=== PATIENT | female | born 1970 | race American Indian/Alaskan Native ===

== ENCOUNTER 2017-11-17 19:20 | Emergency (ER) | payer OTHER ==
[~2017-11-17] VITALS: Ht 160 cm; Wt 113.4 kg
[~2017-11-17 19:20] MED LIST: BACTRIM DS TAB1 EACH PO; KEFLEX500 MG PO; METFORMIN HCL500 MG PO; NORCO 5-325 TA1 EACH PO; ULTRAM50 MG PO; ZITHROMAX250 MG PO
[2017-11-18] MEDS ORDERED: LIDODERM1 EACH TOP (02:11)
[2017-11-18] MEDS ORDERED: CYCLOBENZAPRINE10 MG PO (02:11)
[2017-11-18] MEDS ORDERED: BACTRIM DS TAB1 EACH PO (02:11)
[2017-11-18] MEDS ORDERED: PREDNISONE10 MG PO (02:11)
[2017-11-18] MEDS ORDERED: NAPROSYN500 MG PO (02:11)
--- NOTE | 2017-11-19 22:40 | EKG ---
[facility] [address] [facility] [place] [address] Signed Normal sinus rhythm Left axis deviation Cannot rule out Anterior infarct , age undetermined Abnormal ECG No previous ECGs available Confirmed by YOHANA ZHU MD ([id number]) on 11/19/2017 10:40:01 PM Electronically Signed By: YOHANA ZHU MD 11/19/17 2240 PATIENT NAME: SAAD CALLOWAY Electrocardiogram DATE OF : 70 PHYSICIAN: YOHANA ZHU MD REPORT #: [id number] REPORT IS CONFIDENTIAL AND NOT TO BE RELEASED WITHOUT AUTHORIZATION
== END 2017-11-18 02:22 | disposition home or self-care (01) ==
LOC: ED 19:20
DX: N64.4 Mastodynia (principal); M79.622 Pain in left upper arm; E11.9 Type 2 diabetes mellitus without complications; E66.9 Obesity, unspecified; Z98.890 Other specified postprocedural states; Z79.84 Long term (current) use of oral hypoglycemic drugs
CPT/HCPCS: 93005; 93010; 99283; J7512

== ENCOUNTER 2020-03-23 03:53 | Emergency (ER) | payer OTHER ==
[~2020-03-23] VITALS: Ht 160 cm; Wt 113.4 kg
--- OUTSIDE RECORDS SUMMARY | ~2020-03-23 | XMS | Clinical Summary ---
Demographics + + + | Address | [address] | | | [place] [address] | + + + | Home Phone | | + + + | Preferred Language | Unknown | + + + | Marital Status | Unknown | + + + | Rastafarian Affiliation | Unknown | + + + | Race | Unknown | + + + | Ethnic Group | Unknown | + + + Author + + + | Author | [facility] (Historical as of | | | 07-01-19) | + + + | Organization | [facility] (Historical as of | | | 07-01-19) | + + + | Address | Unknown | + + + | Phone | Unavailable | + + + Support + + +---------+ + | Name | Relationship | Address | Phone | + + +---------+ + | Contact,No | ECON | Unknown | | + + +---------+ + Care Team Providers + +------+ + | Care Supervisor Customer Complaint Service Name | Role | Phone | + +------+ + PP | Unavailable | + +------+ + Allergies Not on File Current Medications Not on file Active Problems Not on file Social History + +-------+ +--------+------+ | Tobacco Use | Types | Packs/Day | Years | Date | | | | | Used | | + +-------+ +--------+------+ | Never Assessed | | | | | + +-------+ +--------+------+ + + + | Sex Assigned at | Date Recorded | | | | + + + | Not on file | | + + + Plan of Treatment + + + + + | Health Maintenance | Due Date | Last Done | Comments | + + + + + | Vaccine: | | | | | Dtap/Tdap/Td (1 - | 9 | | | | Tdap) | | | | + + + + + | Cervical Cancer | | | | | Screening (Pap) | 0 | | | + + + + + | Vaccine: Influenza | | | | | (Season Ended) | 0 | | | + + + + + Results Not on filefrom Last 3 Months Insurance + +--------+ +------+-------+ + | Payer | Benefi | Subscriber | Type | Phone | Address | | | t Plan | ID | | | | | | / | | | | | | | Group | | | | | + +--------+ +------+-------+ + | MEDICAID | MEDICA | [id number] | | | [address] | | | ID | | | | [place] | | | [place] | | | | [phone] | + +--------+ +------+-------+ + + +--------+ +--------+ + + | Guarantor Name | Accoun | Relation to | Date | Phone | Billing Address | | | t Type | Patient | of | | | | | | | | | | + +--------+ +--------+ + + | AMY DANIELS | Person | Self | [birth year] | Home: | [address] | | | al/Joseph | | 1970 | [phone] [address] [place], [place] | | | [place] | | | [phone] | + +--------+ +--------+ + +"
--- OUTSIDE RECORDS SUMMARY | ~2020-03-23 | XMS | Clinical Summary ---
Demographics + + + | Address | [address] | | | [place] [address] | + + + | Home Phone | | + + + | Preferred Language | Unknown | + + + | Marital Status | Unknown | + + + | Buddhist Affiliation | Unknown | + + + | Race | Unknown | + + + | Ethnic Group | Unknown | + + + Author + + + | Author | [facility] (Historical as of | | | 07-01-19) | + + + | Organization | [facility] (Historical as of | | | 07-01-19) [...] Team Providers + +------+ + | Care Special Skills Officer Name | Role | Phone | + [...] +------+-------+ + | MEDICAID | MEDICA | [id number] | | | [address] | | | ID | | | | [place] | | | [place] | | | | [phone] | + +--------+ +------+-------+ + + +--------+ [...] | [place] | | | [phone] | [phone] | + +--------+ +--------+ + +"
[~2020-03-23 03:53] MED LIST changes: +CYCLOBENZAPRINE10 MG PO; +LIDODERM1 EACH TOP; +NAPROSYN500 MG PO; +PREDNISONE10 MG PO
[2020-03-23] MEDS ORDERED: GABAPENTIN300 MG PO (04:14)
== END 2020-03-23 07:19 | disposition home or self-care (01) ==
LOC: ED 03:53
DX: S61.512A Laceration without foreign body of left wrist, initial encounter (principal); E11.9 Type 2 diabetes mellitus without complications; F17.200 Nicotine dependence, unspecified, uncomplicated; Z79.899 Other long term (current) drug therapy; X78.8XXA Intentional self-harm by other sharp object, initial encounter
CPT/HCPCS: 12002; 80053; 80176; 81001; 84443; 84703; 85025; 90471; 90715; 99283-25; G0480

== ENCOUNTER 2020-12-13 11:56 | Emergency (ER) | payer OTHER ==
[~2020-12-13] VITALS: Ht 160 cm; Wt 108.9 kg
[~2020-12-13 11:56] MED LIST changes: +GABAPENTIN300 MG PO
== END 2020-12-13 15:00 | disposition home or self-care (01) ==
LOC: ED 11:56
DX: E11.65 Type 2 diabetes mellitus with hyperglycemia (principal); E66.9 Obesity, unspecified; F17.200 Nicotine dependence, unspecified, uncomplicated; Z79.84 Long term (current) use of oral hypoglycemic drugs
CPT/HCPCS: 80053; 81001; 82010; 85025; 96374; 96375; 96376; 99284-25; J1815; J2405; J7030

== ENCOUNTER 2021-12-13 18:20 | Emergency (ER) | payer OTHER ==
[~2021-12-13] VITALS: Ht 160 cm; Wt 108.9 kg
[2021-12-13] MEDS ORDERED: CYCLOBENZAPRINE10 MG PO (23:04)
[2021-12-13] MEDS ORDERED: ONDANSETRON ODT8 MG PO (23:04)
== END 2021-12-13 23:48 | disposition home or self-care (01) ==
LOC: ED 18:20
DX: U07.1 COVID-19 (principal); E11.9 Type 2 diabetes mellitus without complications; E66.9 Obesity, unspecified; Z68.41 Body mass index [BMI] 40.0-44.9, adult
CPT/HCPCS: 74177; 80053; 81001; 83690; 85025; 96375; 99284-25; A9270; C9803; J1170; J2405; J7030; Q9967; U0003

== ENCOUNTER 2021-12-17 13:06 | Inpatient (IN) | payer OTHER ==
[~2021-12-17] VITALS: Ht 160 cm; Wt 98.1 kg
[~2021-12-17 13:06] MED LIST changes: +ONDANSETRON ODT8 MG PO
--- OUTSIDE RECORDS SUMMARY | 2021-12-17 13:10 | XMS ---
PreManage Notification: SAAD PORTILLO Security Supervisor Accounting Clerks Events No recent Security Events currently on file CRITERIA MET - [facility] - 2 Visits in 30 Days CARE PROVIDERS SILVA KENT Physician Field Laborer Current PHONE: [phone] [facility] has no Care Guidelines for this patient. [facility] VISIT COUNT (12 MO.) 2 [facility] TOTAL 2 NOTE: Visits indicate total known visits. ED/UCC VISIT TRACKING (12 MO.) 12/17/2021 13:07 [facility] [place] TYPE: Emergency COMPLAINT: - DIFFICULTY BREATHING, FLU SYMPTOMS 12/13/2021 18:21 [facility] [place] TYPE: Emergency COMPLAINT: - N/V. STOMACH PAIN DIAGNOSES: - COVID-19 - Obesity, unspecified - Type 2 diabetes mellitus without complications - Upper abdominal pain, unspecified - Body mass index [BMI]40.0-44.9, adult INPATIENT VISIT TRACKING (12 MO.) No inpatient visits to display in this time frame [email or web address]
[2021-12-17] MEDS ORDERED: DICLOFENAC POTA50 MG PO (15:35)
--- NOTE | 2021-12-17 18:45 | NUR ---
New admit to the medical floor. Patient arrived to unit, a&ox4. Patient arrived on 5L oxygen per nc, respirations non labored. Patient reports shortness of breath at rest. Patient voided 200ml concentrated urine in bedside commode upon admit. Patient reports an ongoing headache. Oriented pt to room and call light. No needs at this time.
--- NOTE | 2021-12-17 19:02 | NUR ---
Tylenol 500mg po admin for reports of 9/10 head pain.
--- NOTE | 2021-12-17 22:50 | NUR ---
PT ON 5LNC, SOB WITH EXERTION PRESENT, LUNGS DIM AT BASES, UP TO BSC, VOIDED QS. TOLERATING LIQUIDS WELL, NO EMESIS. SL PATENT RAC. MEDICATED WITH TYLENOL PER RIBS/H/A PAIN. MEDICATED WITH COUGH SYRUP AND TESSLON PERLES PER DRY MOUTH AND COUGH. PLEASANT, COOPERATIVE, TELE#4 DENIES CP.
--- NOTE | 2021-12-17 22:50 | NUR ---
PT ON 5LNC, SOB WITH EXERTION PRESENT, LUNGS DIM AT BASES, UP TO BSC, VOIDED QS. TOLERATING LIQUIDS WELL, NO EMESIS. SL PATENT RAC. MEDICATED WITH TYLENOL PER RIBS/H/A PAIN. MEDICATED WITH COUGH SYRUP AND TESSLON PERLES PER DRY MOUTH AND COUGH. PLEASANT, COOPERATIVE, TELE#[address] W CPOX AFIB W A RUN OF PVC'S DENIES CP.
--- NOTE | 2021-12-18 01:04 | NUR ---
Continues on Resp Isolation, 5L NC O2, no distress, eyes closed, turns self in bed, call light and fluids at bedside
--- NOTE | 2021-12-18 03:00 | NUR ---
Pt was up to BSC, voided dark yellow urine, cloudy, no abnormal smell. was on O2 5L NC, sats 89% at that time. O2 tubing in one nare, repositioned. Increaed anxiety and sob on return. O2 increaed to 6L, dessatted to 86%. increased to 8L high flow tubing. sats 89-90%, proning positioning on her abd. mouth breather, reassured, pamphlet given. dessated to 85% again, lungs with fine crackles t/o. resp up to 26. O2 increaed by RT to 13L high flow. sats per CPOX#4
--- NOTE | 2021-12-18 03:16 | NUR ---
Pt on 13L high flow O2, proning positioning. reassured
--- NOTE | 2021-12-18 04:31 | NUR ---
turning and desatted to 79%. on 13L high flow. reminded of proning positioning and turned to L side. O2 increaed to 15L, sats 88-89%. changed to 15L oxymask, with inmediate increaed to 93%.. medicated with tylenol per h/a and cough syrup. ice chips on requests. alert andoriented, anxious, reassured, calmer
--- NOTE | 2021-12-18 04:44 | NUR ---
Pt on 15L Oxymask and proning position Abd, sats 94%
--- NOTE | 2021-12-18 05:10 | NUR ---
Pt was initially on 5LNC regular O2 tubing. SOB with exertion when up to BSC, requiring incresing O2 to 6-7L.desatting to 76%, increaed anxiety, reassured O2 tubing changed to high flow to 8L. still dessated to low 80's. proning positioned with cuing. O2 increaed to 13L, sats 89%. O2 increased to 15L sats 91%.Pt lungs with fine crackles through out. Increased sob with anxiety, due to sore throat and moving in bed, desatted again and was changed to Oxymask 15L, proned to abd and left sided. sats per CPOX #4 93% pulse 51, resp 18. resting, eyes closed, no further distress. Has been medicated with Tylenol per h/a and with tessalon perlesX1 and cough syrup X@, ice chips per cough and to soothe sore throat. alert and oriented follows instructions. cont to reassure safety, O2 concerns, anxiety and proning positioning. Pt on Respiratory Isolation. Received first dose of Remdesevir
--- NOTE | 2021-12-18 05:57 | NUR ---
pt on 15L OXymask, turned and repositioned, cpox #4 sasts 90-93%. Cooperative, stated she has restless legs and would like meds for it. will notify
--- NOTE | 2021-12-18 07:00 | NUR ---
Pt laying on her R side, Oxymask at 15L in place, cpox#[address] 95%
--- NOTE | 2021-12-18 07:18 | NUR ---
REPORT RECEIVED FROM BETO GORDON. PT RESTING ON RIGHT SIDE WITH EYES CLOSED, RESPIRATIONS EVEN AND UNLABORED. OXGYEN IN PLACE BY OXYMASK AT 15L WITH OXYGEN SATURATIONS OF 94%. DR. ZHU UPDATED REGARDING D-DIMER LAB VALUES AND INCREASED OXYGEN NEED, NO NEW ORDERS AT THIS TIME. PT ALLOWED TO REST. BED RAILS UP CALL LIGHT WITHIN REACH.
[2021-12-18] MEDS ORDERED: CYCLOBENZAPRINE10 MG PO (07:50)
[2021-12-18] MEDS ORDERED: ONDANSETRON ODT8 MG PO (07:50)
--- NOTE | 2021-12-18 08:18 | NUR ---
MORNING ASSESSMENT AND MEDICATION DUE. PT RESTING IN BED, WORKING WITH RT. OXGYEN SATURATION DROPPING TO 87% ON 15L O2 BY OM. NC AT 15L ADDED UNDER OM. PT CLIMBS TO 89=90% WHILE RESTING WITH OM AT 15L AND NC AT 15L. STAND BY ASSIST UP TO BEDSIDE COMODE. PT VERY SHORT OF BREATH WITH ACTIVITY. PT VOIDS 300ML YELLOW CONCENTRATED URINE WITH OUT ISSUE. OXGYEN SATURATION DROP TO 82% WITH ACTIVTY WITH BOTH OM AND NC REMAINING IN PLACE. DEPENDS PROVIDED PER PT REQUEST PT REPORTS STRESS INCONTANCE WITH COUGHING. PT REPORTS NAUSEA, SEE MAR FOR MEDICATION GIVEN. IV ASSESSED, WNL, NO S/S OF PHLEBITIS NOTED, IV FLUSHED AND SALINE LOCKED PER PROTOCOL. PT CONTINUES TO REPORT GENERALIZED WEAKNESS. PT REPORTS 7/10 HEADACHE THAT IS "WORSE WHEN I GET UP." SEE MAR FOR MEDICATION GIVEN. CRACKELS NOTED THROUGOUT LUNGS. DYSPNEA ON EXERTION SEVERE. HEART TONES IRREGULAR. PT REPORTS POOR APPITITE. PT DENIES LOSS OF SENSE OF TASTE OR SMELL. DENIES DIARRHEA. PT EDUCATION DONE REGARDING PRONING. PT VERBALIZEDS UNDERSTANDING. STATES SHE WOULD LIKE TO REMIAN ON BACK FOR NOW TO "TRY AND EAT SOMETHING." PT DEMONSTRATES USE OF I.S. REACHING 250-500ML X5. MEDICATIONS GIVEN. NO ADDITIONAL REQUESTS OR COMPLAINTS. CALL LIGHT WITHIN REACH. BED RAILS UP.
--- NOTE | 2021-12-18 09:02 | NUR ---
RT UPDATED ON PTS STATUS AND OXGYEN NEEDS, AZRA, RT RECCOMENDING VAPOTHERM AND STATES HE WILL BRING ONE TO THE ROOM.
--- NOTE | 2021-12-18 09:33 | NUR ---
THIS RN TO ROOM TO CHECK ON PT. PT PLACED ON VAPOTHERM BY RT. SETTINGS OF 100% FIO2 AND 40LPM. OXYGEN SATURATIONS 93-95%. PT RESTING ON RIGHT SIDE. PT DENIES REQUESTS OR COMPLAINTS AT THIS TIME. STATES NAUSEA HAS IMPROVED. VAUGHN ADKINS AT BEDSIDE FOR VITAL SIGNS. CALL LIGHT WITHIN REACH.
--- NOTE | 2021-12-18 09:40 | NUR ---
In to speak with pt, she is proning. Asked if I should return at another time and she would prefer. Will follow up with pt tomorrow.
--- NOTE | 2021-12-18 10:09 | NUR ---
THIS RN TO ROOM TO CHECK ON PT. PT RESTING ON LEFT SIDE. OXYGEN SATURATIONS 93-95% ON 100% FIO2 AND 40LPM. PT REPORTS HER IV IS BOTHERING HER. IV ASSESSED, WNL, NO PAIN OR OTHER S/S PHLEBITIS NOTED. TAPE REMOVED AND PT REPORTS "THAT FEELS BETTER." DR. ZHU TO BEDSIDE TO REVIEW PLAN OF CARE WITH PT. DR. ZHU UPDATED ON PT STATUS. NO ADDITIONAL REQUESTS OR COMPLAINTS. CALL LIGHT WITHIN REACH. BED RAILS UP.
--- NOTE | 2021-12-18 10:42 | NUR ---
THIS RN TO ROOM TO CHECK ON PT. PT REMAINS IN PRONE POSITION WITH OXYGEN SATURATIONS OF 98% ON 100% FIO2 AND 40LPM. PT RESTING WITH EYES CLOSED. PT ALLOWED TO REST UNDESTURBED. CALL LIGHT WITHIN REACH. BED RAILS UP.
--- NOTE | 2021-12-18 11:19 | NUR ---
THIS RN TO ROOM TO CHECK ON PT. PT RESTING ON LEFT SIDE WITH EYES CLOSED. RESPRITIONS EVEN AND UNLABORED. OXGYEN SATRUATIONS AT 96% ON 100% FIO2 AND 40LPM THROUGH VAPOTHERM. PT ALLOWED TO REST. CALL LIGHT WITHIN REACH. BED RAILS UP.
--- NOTE | 2021-12-18 11:46 | NUR ---
PT AWAKE, MEDICATION DUE. THIS RN TO ROOM PT IN SEMI VENEGAS POSITION WITH HEAD OF BED ELEVATD TO 30 DEGREES. OXGYEN SATURATION 90-92% ON VAPOTHERM SETTINGS OF 100% FIO2 AND 40LPM. MEDICATION GIVEN. PT DENIES NASUEA, REPORTS MINIMAL APPITITE. PT REPORTS HEADACHE AT 4/10, DENIES NEED FOR MEDICATION AT THIS TIME. NO ADDITIONAL REQUESTS OR COMPLAINTS. CALL LIGHT WITHIN REACH.
--- NOTE | 2021-12-18 12:40 | NUR ---
PULSE OXYMETRY NOTED TO BE DROPING TO 83% WITH PT ON VAPOTHERM 100% FIO2 AND 40LPM SITTING IN SEMI VENEGAS POSITION. PT REPOSITIONED TO RIGHT SIDE LYING POSITION WITH OXGYEN SATURAITON CLIMBING TO 88%. OXYMASK PLACED OVER VAPOTHERM AT 15L. OXGYEN SATURATION CLIMBS TO 96%. PT REQUESTS TO LEAVE OXYMASK IN PLACE STATING "IT HELPS A LOT." PT REMAINS ON RIGHT SIDE. WAS ABLE TO EAT 25% OF LUNCH. NO ADDITIONAL REQUESTS OR COMPLAINTS. CALL LIGHT WITHIN REACH. BED RAILSUP.
--- NOTE | 2021-12-18 13:09 | NUR ---
DR ZHU UPDATED ON PT STATUS. STATES OK TO LEAVE PT WITH OXY MASK AND VAPOTHERM AT THIS AND IF OXYGEN NEED CONTINUES TO INCREASE TO ORDER CPAP. SHORER UPDATED.
--- NOTE | 2021-12-18 14:07 | NUR ---
AFTERNOON ASSESSMENT DUE. THIS RN TO ROOM. PT RESTING ON LEFT SIDE. PT REPORTS 9/10 HEADACHE PAIN. TYELNOL PROVIDED PER PT REQUEST. COOL CLOTH PROVIDED FOR FORHEAD. PT DROWSY AND VERY LETHARGIC. PT REPORTS FEELING "REALLY TIRED" REALTED TO COVID. PT REPORTS WEAKNESS CONTINUES. HEART TONES REGULAR. VITAL SIGNS STABLE. PT REMAINS ON VAPOTHERM AT 100%FIO2 AND 40LPM WITH OXGYEN SATURATION OF 96-99%. PT CONTINUES TO REQUEST OM TO BE LEFT IN PLACE OVER VAPOTHERM AT 15L O2 STATING "I CAN BREATH BETTER THIS WAY." MD AWARE. CRACKELS NOTED IN LOWER LOBES OF LUNGS. PT DEMONSTRATES USE OF I.S. REACHING 500ML X5. PT DENIES NAUSEA AT THIS TIME. PT CONTINUES TO REPORT MINMIAL APPITITE. PT RESTING ON LEFT SIDE WITH EYES CLOSED. RR = 24. NO ADDITONAL REQUESTS OR COMPLAINTS. CALL LIGHT WITHIN REACH. BED RAILS UP.
--- NOTE | 2021-12-18 14:22 | NUR ---
MED REC COMPLETED BY PHARMACY
--- NOTE | 2021-12-18 15:45 | NUR ---
THIS RN TO ROOM TO CHECK ON PT. PT RESTING ON RIGHT SIDE WITH EYES CLOSED. RR = 20. OXGYEN SATURATION 100% WITH VAPOTHERM AT 100% FIO2 AND 40LPM WITH OXYMASK AT 15L OVER VAPOTHERM CANULA PER PT REQUEST. OXYMASK WEANED TO 10L O2. VAPOTHERM WEANED TO 90% FIO2 AND 35LPM. PT TOLERATES WITH OXGYEN SATURATIONS REMAINING ABOVE 94%. PT CONTINUES RESTING. NO ADDITIONAL NEEDS. CALL LIGHT WITHIN REACH. BED RAILS UP.
--- NOTE | 2021-12-18 16:05 | NUR ---
PT HERE FOR COVID 19 PNEUMONIA, PT UP THIS SHIFT WITH STAND BY ASSIST TO BEDSIDE COMODE. SEVERE DYSPNEA ON EXERTION AND DESATURATIONS WITH ACTIIVTY. PT HAS MINIMAL APPTITE FOR 60G CARB DIET. SMALL BITES TAKEN. PRN NAUSEA MEDICATION GIVEN X1 SO FAR THS SHIFT. CPOX REMAINS IN PLACE WITH INCREASED OXYGEN NEEDS. PT NOW ON VAPOTHERM AT 90-100% FIO2 AND 35-40LPM. PT ALSO HAS OXYMASK IN PLACE OVER VAPOTHERM STATING SHE IS ABLE TO BREATH "BETTER" WITH BOTH AND REQUESTING TO LEAVE BOTH IN PLACE. PT PARTICIPATING IN PRONING PROTOCOLS AND DEMONSTRATES USE OF I.S. REACHING 250ML-500ML. BLOOD SUGAR CHECKS WITH MEALS, SLIDING SCALE INSULIN GIVEN. BARCITINIB ADDED TO MEDICATIONS THIS SHIFT. PT VOIDING QUANTITY SUFFICIENT. PT USES CALL LIGHT AND MAKES NEEDS KNOWN.
--- NOTE | 2021-12-18 16:30 | NUR ---
PTS COUSIN, SILVA MARTÍNEZ, CALLED FOR UPDATED PT STATES OK TO UPDATE. SILVA UPDATED ON PTS STATUS AND PLAN OF CARE. SILVA STATES PTS SISTER (SILVA'S MOM) RECEIENTLY PASSED FROM [facility]. SILVA CONCERNED ABOUT PTS MENTAL HEALTH. FAMILY ENCOURAGED TO CALL FOR UPDATES. SILVA VERBALIZES UNDERSTANDING OF PLAN OF CARE AND STATES HER QUESTIONS HAVE BEEN ANSWERED.
--- NOTE | 2021-12-18 17:30 | NUR ---
THIS RN TO ROOM TO CHECK ON PT. PT SITTING UP IN BED EATING DINNER. OXGYEN SATURATIONS 90-92% ON VAPOTHERM ONLY AT 100% FIO2 AND 40LPM. PT REPORTS FEELING "BETTER AFTER MY NAP." PT UPDATED THAT HER COUSIN WAS UPDATED. PT REPORTS 4/10 HEADACHE AT THIS TIME, DENIES NEED FOR PAIN MEDICATION. INSULIN GIVEN. PT DENIES ADDITIONAL REQUESTS OR COMPLAINTS. CALL KRISTEN BARBER. BED RAILS UP.
--- NOTE | 2021-12-18 18:06 | NUR ---
THIS RN TO ROOM TO CHECK ON PT. PT REPORTS NEED TO USE THE RESTROOM. STAND BY ASSIST UP TO BEDSIDE COMODE. PT TAKES OFF OXYMASK WITH TIME UP TO COMODE AND DROPS TO 79% ON 100% FIO2 AND 40LPM. STAND BY ASSIST BACK TO BED. PT PERFORMS SELF LATOYA CARE. PT IN SEMIFOWLER POSITION OXYMASK BACK IN PLACE AND RECOVERS TO 96%. VITAL SIGNS OTHERWISE STABLE. PT DENIES ADDITIONAL REQUESTS OR COMPLAINTS. CALL LIGHT WITHIN REACH. BED RAILSUP.
--- NOTE | 2021-12-18 18:52 | EKG ---
[facility] [address] [facility] [address] [place] [address] Signed Normal sinus rhythm Possible Anterolateral infarct , age undetermined Abnormal ECG Confirmed by YOHANA ZHU MD ([id number]) on 12/18/2021 6:52:01 PM Electronically Signed By: YOHANA ZHU MD 12/18/211851 PATIENT NAME: SAAD PORTILLO Hiren Electrocardiogram DATE OF : 70 PHYSICIAN: YOHANA ZHU MD REPORT #: [id number] REPORT IS CONFIDENTIAL AND NOT TO BE RELEASED WITHOUT AUTHORIZATION
--- NOTE | 2021-12-18 20:09 | NUR ---
PT VERY ANXIOUS, REASSURED VERBALLY ON RESPIRATORY ISOLATION PRECAUTIONS. ON VAPOTHERM 40L/100% O2, PLUS OXYMASK 15L. SOB WITH EXERTION. IS AT BEDSIDE, WENT UP TO 200, SOB AND INCREASED MOIST NON PRODUCTIVE COUGH AFTERWARDS, MEDICATEXD WITH TESSALON PERLES AND CAOUGH SYRUP. CPOX IN PLACE#4 SATS 94%. TALKED TO PT ABOUT O2 REQUIREMENTS AND BIPAP, STATED UNDERSTANDING. LUNGS WITH CRACKLES AT BASES, SKIN PALE/CARRIE COLORING. NO C/O ADVERSE REACTION TO REMDESIVIT IV. SITE INTACT. PT CALMER AT THIS TIME. TOLERATING LIQUIDS WELL, C/O UPSET STOMACH WHEN TURNING. MEDICATED WITH ZOFRAN. HOB ELEVATED. UP TO BSC. VOIDED SMALL AMOUANTS MEDIUM YELLOW URINE. BACK TO BED SOB ON EXERTION . CALL LIGHT AND LIQUIDS AT BEDSIDE. ALERT AND ORIENTED. C/O H/A, WET COLD WASH TOWEL TO FOREHEAD AND ICE TO BACK OF HEAD.
--- NOTE | 2021-12-18 22:26 | NUR ---
PT UP TO BSC, VOIDED, BACK TO BED, TOOK O2 VAPOTHERM TUBING AND OXYMASK OFF AND FINGER PROBE LOOSENED. DESSATED TO MID 70%, PULSE APPEARED TO GO UP TO 180'S AND NOWW BACK AT 48-56, RESP 28-36 WITH EXERTION AND SOB. VAPOTHERM AND OXYMASK BACK ON, FINGER PROBE REPOSITIONED BACK IN PLACE. PT WEARING ACRYLIC NAILS IN ALL FINGERS."NO I GOT SOB AND STARTED HYPERVENTILATING, I DID NOT FELT MY HEART FEELING LIKE IT WAS GOING CRAZY'. . BACK TO BED, PRONING TO LEFT SIDE. CPOX#[address], SATS 98% PULSE 48, RESP 24. CALMER, AWARE TO CALL STAFF FOR HELP, AWARE TO NOTIFY RN IF INCREASED AIR HUNGER,PALPITATIONS OR ANYTHING ABNORMAL, STATED UNDERSTANDING. CALMED DOWN AND RESTING AT THIST CORINNA, NO FURTHER C/O H/A.
--- NOTE | 2021-12-18 23:04 | NUR ---
WATCHING TV AND TEXTING VIA OWN CELL PHONE, DENIES SOB OR H/A. TOLERATING FLUIDS, ON VAPOTHERM AND OXYMASK AT SAME TIME. CPOX#4 99% P42 ON RESP ISOLATION PRECAUTIONS
--- NOTE | 2021-12-18 23:35 | NUR ---
Awake, texting via private cell phone, HOB elevated cpox #4 sats 91% on vaportherm and Oxymask. P43, denies CP or SOB at this time, sitting up in bed. tolerating liquids well. Cont on Resp Isolation Precautions
--- NOTE | 2021-12-19 03:38 | NUR ---
LAYING ON HER BACK, AWARE OF PRONING POSITINING. ON 40L/100% VAPOTHERM AND 15L OXYMASK, TELE#[address] SATS 91%, LUNGS WITH CRACKLES AT BASES, MOIST NON PRODUCTIVE COUGH PRESENT, SLIGHT SOB WITH EXERTION. COUGH SYRUP PER COUGH, C/O UPSET STOMACH, MEDICATED WITH ZOFRAN IV. C/O 8/10 H/A. MEDICATED WITH TYLENOPL. WATCHING TV. ANXIOUS, REASSURED VERBALLY, CALMER. LIQUIDS AT BEDSIDE. USES CALL LIGHT, VOIDING QS/BSC.
--- NOTE | 2021-12-19 04:40 | NUR ---
PT CONTINUES ON RESPIRATORY ISOLATION PRECAUTIONS. ON VAPOTHERM 40L/100% AND OXYMASK AT 15L, DESATS TO MID 70'S% WHEN UP TO BSC, TACHEIPNEIC AND SOB. RECUPERATED EASILY. LUNGS WITH FINE CRACKLES AND DIM AT BASES. TOLERATED REMDESIVIR IV WELL, WAS MEDICATED WITH TYLENOL AND GIVEN ICE PACK FOR H/A, EFFECTIVE. MEDICATED WITH TESSALON PERLESx1 AND COUGH SYRUPX2 PER COUGH AND SORE THROAT, EFFECTIVE. DOES PRONE WHEN REMINED. CPOX #[address] 100% P40BPM AT THIS MINUTES, DENIES C/O CP OR LIGHTHEADNESS. USES CALL LIGHT, TOLERATING LIQUIDS, CBG 160 RECEIVED SS INSULIN COVERAGE. ALERT AND ORINETED, PALE/CARRIE LOOKING SKIN. COOPERATIVE. FOLLOWS INSTRUCTIONS
--- NOTE | 2021-12-19 06:12 | NUR ---
pt awake, tacheipneic, Oxymask decreased to 10L plus Vapotherm, up to bsc, tolerated , sob with exertion, sats were 98% and dropped to 93 on return. repositions self in bed. OXymask taken off and placed close to her hands to reach for it when getting up to bsc. sats as per tele#4 on Vapotherm 40L/100% 88-91%. uses call light
--- NOTE | 2021-12-19 06:39 | NUR ---
on Vapotherm only 98% pulse 37, R26, proning on her L side
--- NOTE | 2021-12-19 07:20 | NUR ---
REPORT RECEIVED FROM BETO GORDON. PT RESTING IN BED ON LEFT SIDE. VAPOTHERM IN PLACE AT 40LPM AND 100% FIO2. OXGYEN SATURATION 96%, RESPIRATIONS EVEN WITH RR OF 24. BED RAILS UP. CALL LIGHT WITHIN REACH. PT ALLOWED TO REST.
--- NOTE | 2021-12-19 08:13 | NUR ---
MORNING ASSESSMENT AND MEDICATION DUE. PT RESTING IN BED IN SEMIFOWERL POSTIOIN, TALKING WITH CASE MANAGMENT ON THE PHONE. PT NOTED TO USE 1-3 WORD SENTANCES TO ANSWER INDICATING SHORTNESS OF BREATH. PT REMAINS ON VAPOTHTERM AT 100% FIO2 AND 40LPM WITH OXGYEN SATRAUTION CURRENTLY 89-91%. PT REPORTS 8/10 HEADACHE, TYELNOL GIVEN. PT CONTINUES TO STATE HEADACHE IS WORSE WITH ACTIVITY. PT CONTINUES TO REPORT WEAKNESS RELATED TO ILLNESS, PT IS ABLE TO GET UP TO COMODE WITH STAND BY ASSIST. PT REPORTS SHE WAS USING A CANE AT HOME "WHEN I GOT SICK BECUASE IT WAS HARD TO MOVE AROUND." LUNG SOUNDS CLEAR, DEMINISHED IN BASES. SHORTNESS OF BREATH AND SEVERE DYSPNEA ON EXERTION NOTED. PT DROPS TO 87% ON VAPOTHERM WITH ANY MOVEMENT OR TALKING. RECOVERS TO 90%'S WITH REST. OXYMASK AT 10L AT BEDSIDE FOR EASE OF RECOVERY. DRY COUGH CONTINUES. CPOX IN PLACE. HEART TONES REGULAR, YIMI CARDIA NOTED WITH HEAR RATE IN THE 40'S. PT REPORTS MILD NASEA. NO MEDICATION DUE AT THIS TIME, PT STATES SHE "CAN WAIT UNTIL 10, SEE IF BREAKFAST HELPS." PT REPORTS HUNGER. PT DENIES LOSS OF SENSE OF TASTE OR SMELL. PT DENEIS DIARRHEA. PT ASKING QUESTIONS ABOUT WHEN SHE CAN GO HOME. EDUCATION DONE WITH PT REGARDING PLAN OF CARE, PT VERBALIZES UNDERSTANDING. PT REPORTS SHE WAS ABLE TO PRONE LAST NIGHT AND STATES "I SLEPT REALLY WELL." PT DEMONSTRATES USE OF I.S. REACHING 500ML X6. NO ADDITIONAL REQUESTS OR COMPLAINTS. CALL LIGHT WITHIN REACH. BED RAILS UP.
--- NOTE | 2021-12-19 09:58 | NUR ---
THIS RN TO ROOM TO CHECK ON PT. PT CONTINUES TO REPORT NAUSEA. ABLE TO EAT 50% OF BREAKFAST. PT REQUESTS NAUSEA MEDICATION, SEE MAR FOR MEDICATION GIVEN. PT REPORTS 5/10 HEADACHE THAT IS "GETTING BETTER." PT DENIES NEED FOR ADDITONAL PAIN MEDICATION AT THIS TIME. PT REQUESTS A SHOWER. GIVEN PTS CURRENT HIGH OXGYEN DEMANDS BED BATH IS RECOMMENDED. NURSING CARE ATTENDANT UPDATED. PT DENIES ADDITIONAL REQUESTS OR COMPLAINTS. CALL LIGHT WITHIN REACH. BED RAILS UP.
--- NOTE | 2021-12-19 10:20 | NUR ---
Spoke with Amy by phone. She states she lives in an apartment with her spouse. States she has several steps into apartment, but has not had issues getting up or down steps. She remains on a vapotherm at 40 L with a nasal cannula. Pt uses a cane at home since being sick. Pt feels she may need a walker on discharge and we discussed she may need oxygen. If oxygen is needed she would like to use [place]. Conver- sation was short as I did not want to tax pt.
--- NOTE | 2021-12-19 10:36 | NUR ---
DR. ZHU UPDATED REGARDING PTS OXYGENATION AND BRADYCARDIA. EKG ORDERS PLACED. RT CALLED AND WILL PERFORM EKG.
--- NOTE | 2021-12-19 12:03 | NUR ---
THIS RN TO ROOM TO CHECK ON PT. PT UP TO BEDSIDE COMODE, INDEPENDANT. BOTH VAPOTHERM 100/40, AND OXYMASK AT [address] FOR ACTIVITY, [id number], PT DROPS TO 84% WITH ACTIVITY. SEVERE DYSPNEA ON EXERTION NOTED. LATOYA CARE DONE BY PT. PT BACK TO BED WITH STAND BY ASSIST. RECOVERS WITH OM AND VAPOTHERM IN PLACE AFTER 10 MINUTES. MEDICAITONS GIVEN. PT CONTINUES TO REPORT HEADACHE, NOW AT 7/10. LUNCH DELIVERED. PT EATING. NO ADDITIONAL REQUESTS OR COMPLAINTS. PT CONTINUES TO REPORT LETHERGY AND WEAKNESS. CALL LIGTH WITHIN REACH. BED RAILS UP.
--- NOTE | 2021-12-19 13:07 | NUR ---
THIS RN TO ROOM TO CHECK ON PT. PT RESTING IN BED REPORTS 4/10 HEADACHE THAT IS "BETTER." OXGYEN SATURATION OF 94% ON VAPOTHERM AT 100% AND 40LPM, NO OM IN PLACE AT THIS TIME. PT DENIES ADDITIONAL REQUESTS OR COMPLAINTS. CALL LIGHT WIHTIN REACH. BED RAILS UP.
--- NOTE | 2021-12-19 14:51 | NUR ---
AFTERNOON ASSESSMENT DUE. PT SITTING UP IN BED. OXGYEN SATURATIONS STABLE AT 95-98% ON VAPTHERM 100% FIO2 AND 40LPM. PT MAINTAINS SATURATIONS UNLESS UP IN ROOM. PT REPORTS HEADACHE HAS IMPROVED NOW 01/22. PT DENIES NEED FOR ADDITIONAL MEDICATION AT THIS TIME. SHORTNESS OF BREATH CONTINUES WITH CONVERSATION WELL DYSPNEA ON EXERTION. PT DENIES NASUEA. PT REPORTS SHE HAS "BETTER ENERGY" TODAY. PT REPORTS SHE CONTINUES TO FEEL WEAK FROM TIME TO TIME RELATED TO ILLNESS. PT CONTINUES TO REPORT POOR APPITITE, DENIES LOSS OF SENSE OF TASTE OR SMELL. PT REPORTS HEART BURN CONTINUES BUT HAS IMPROVED "DRINKING WATER HELPED." AWAITING MD ORDERS. PT DENIES ADDITIONAL REQUESTS OR COMPLAINTS. CALL LIGHT WITHIN REACH. BED RAILS UP. PT TALKING WITH FAMILY ON PHONE.
--- NOTE | 2021-12-19 15:40 | NUR ---
NEW ORDERS PLACED. MEDICATIONS GIVEN. PT SITTING UP IN BED. FOUND TO BE 86% ON VAPOTHERM ONLY. PT ENCOURAGED TO WEAR OXY MASK IN ADDITION TO VAPOTHERM WHEN SITTING ON EDGE OF BED. VAUGHN ADKINS, TO BEDSIDE TO ASSIST PT WITH BED BATH. NO ADDITIONAL REQUESTS OR COMPLAINS. CALL LIGHT WITHIN REACH. BED RAILS UP.
--- NOTE | 2021-12-19 16:52 | NUR ---
PT FINISHED WITH BED BATH. PT RESTING ON LEFT SIDE WITH EYES CLOSED. RESPIRSTIONS EVEN AND UNLABORED. PT AWAKENS TO VOICE. PT REPORTS FEELING "REALY TIRED" AFTER HER BATH. BLOOD SUGAR TAKEN. OXGYEN SATURATION OF 98% ON VAPOTHERM 40/100 AND OXYMASK AT 15L. PT REPORTS SHE WOULD LIKE TO LEAVE OXY MASK IN PLACE AT THIS TIME. NO ADDITIONAL REQUESTS OR COMPLAINTS. AWAITING ARRIVAL OF DINNER.
--- NOTE | 2021-12-19 18:07 | NUR ---
THIS RN TO ROOM TO CHECK ON PT. PT FINISHED WITH DINNER. MEDICATIONS GIVEN. PT REPORTS HEADACHE HAS FURTHER IMPROVED, NOW 11/24. PT DECLINES TYELNOL AT THIS TIME. NO ADDITIONAL REQUESTS OR COMPLAINTS. OXYGEN SATURATION REMAINS ABOVE 90% ON 30LPM AND 100% FIO2. CALL LIGHT WITHIN REACH. BED RAILS UP.
--- NOTE | 2021-12-19 18:30 | NUR ---
PTS FAMILY, SILVA, CALLED AND UPDATED ON PT STATUS AND PLAN OF CARE. SILVA VERBALIZES UNDERSTANDING AND STATES HER QUESTIONS HAVE BEEN ANSWERED.
--- NOTE | 2021-12-19 18:40 | NUR ---
OXGYEN SATURATION NOTED TO BE 82%. THIS RN TO ROOM. PT UP IN ROOM AND HAS REMOVED HER OXGYEN. PT STATES "I JUST WANTED TO GET UP TO THE BATHROOM." PT EDUCATION DONE REGARDING NEED TO LEAVE OXYGEN IN PLACE. VAPOTHERM AND OXYMASK REAPPLIED TO PT. PT VERBALIZES UNDERSTANDING. PT REPORTS SHE NOW HAS A HEADACHE AT 5/10. SEE MAR FOR MEDICATION GIVEN. PT BACK TO BED. OXYGEN SATURATIONS CLIMB TO 97%. NO ADDITIONAL REQUESTS OR COMPLAINTS. CALL LIGHT WITHIN REACH. BED RAILS UP.
--- NOTE | 2021-12-19 18:41 | NUR ---
PT HERE FOR COVID 19 PNEUMONIA. PT UP WITH STAND BY ASSIST FOR BEDSIDE COMODE USE. SEVERE DYSPNEA ON EXERTION WITH ACTIVITY CONTINUES. PT TOLERATING 60G CARB DIET WITH GOOD APPITITE. BLOOD SUGAR CHECKS WITH MEALS AND SLIDING SCALE INSULIN GIVEN. PT REMAINS ON VAPOTHERM AT 40LPM AND 100% FIO2 TO MATINTAIN OXGYEN SATURATIONS ABOVE 90%. OXY MASK USED AT 15 L IN ADDITION FOR ACTIVITY. I.S. USE DEMONSTRATED. HEADACHES IMPROVING THIS SHIFT, PRN TYENOL GIVEN X2. PT PARTICIPATING IN PRONING PROTOCOLS. PT VOIDING QUANTITY SUFFICIENT. PT USES CALL LIGHT AND MAKES NEEDS KNOWN.
--- NOTE | 2021-12-19 20:03 | NUR ---
IN BED WATCHING TV. USING VAPOTHERM ONLY AT 40L/100%, P 40BPM, TACHEIPNEIC WITH MOVEMENT. UP TO BSC, USES OXYMASK AT 5L. SATS 98% AND 94% ON RETURN, PULSE ELEVATED TO 80 EHEN UP, RESP 30 ON RETURN, RECUPERATES EASILY, OXYMASK OFF WHEN IN BED. LUNS DIM AT BASES. DRY NON PRODUCTIVE COUGH NOTED. MEDICATED WITH TESSALON PERLES AND COUGH SYRUP. LOZENGER TAB GIVEN PER C/O DRY SORE THROAT. MEDICATED WITH MAALOX PER C/O UPSET STOMACH. NO EMESIS. COOP. CBG 202, RECEIVED 2 UNITS HUMOLOG SS INSULIN. PT WAS FIDGETING WITH FINGER PROBE, ENCOURAGED TO KEEP IT IN PLACE, AND TO NOT TAKE O2 OFF WHEN UP TO BR. STATED UNDERSTANDING. BSC NEXT TO BED. FRESH FLUIDS AND CALL LIGHT AT HANDS REACH. CPOX#[address] TOLERATED REMDESIVIR IV WELL, NO C/O ADVERSE REACTION. SL FABIOLA PATGENT. CONT ON RESPIRATORY ISOLATION PRECAUTIONS. PT ALERT AND ORIENTED ANXIOUS AND FIDGETTY, REASSURED VERBALLY, CALMER NOW.
--- NOTE | 2021-12-19 23:04 | NUR ---
C/O 8/10 H/A, AND SORE THROAT. MEDICATED WITH TYLENOL 500MG PO AND CEPACOL LOZENGER. ON VAPOTHERM 40L/100%. SATS 93%
--- NOTE | 2021-12-20 03:00 | NUR ---
resting, eyes closed, no distress, on vapotherm 40L/100%, cpox#4 100% p38, r16 on respiratory isolation precautions
--- NOTE | 2021-12-20 05:29 | NUR ---
Continues on respiratory isolation precautions. was on 40L/100% O2 Vapotherm and Oxymask 15L when up to BSC at begining of shift. tele#[address], sats 98-100%. was weaned down to 30L/80% O2 and Oxymask off when up to BSC. tolerated well initially. then took tubing off nares desatted to 72%, placed back on 30l/80% and Oxymask on at 5L O2, proning positioning. sats 95%. Pt continues to be bradychardia HR 36-45 bpm. denies CP. Was medicated with Tylenol per h/a, Cepacol lozenger X2 and cough syrup X2 per c/o sore throat. maalox X2 per abd discomfort, effective, no emesis. tolerating liquids well, voiding QS dark yellow urine. pleasant and cooperative.
--- NOTE | 2021-12-20 06:23 | NUR ---
RESTING, EYES CLOSED, ON VAPOTHERM 30L/80% O2. 98% SATS PER CPOX#4. PRONING ON HER L SIDE. AWAKES EASILY, NO FURTHER C.O H/A, SORE THROAT OR UPSET STOMACH
--- NOTE | 2021-12-20 07:58 | NUR ---
IN TO GET BS CHECK. PT SITTING UP IN BED WATCHING TV. TOOK BS CHECK. PT WAS AGREEABLE TO CHAIR. PUT BLANKET ON CHAIR AND PLACED SOCKS ON FEET. BRAKE ON. ASSISTED PT UP AND TO CHAIR. BREAKFAST SERVED. CALL LIGHT WITHIN REACH NO FURTHER NEEDS AT THIS TIME.
--- NOTE | 2021-12-20 08:54 | NUR ---
Tylenol 500mg po and tessalon perles 100mg po admin for cough and headache. Patient resting in bed, alert and oriented x4. Patient reports she became sob when sitting up at bedside, pt now laying on back in bed respirations non labored. Patient on vapotherm, 30L/80%. Patient reports she feels a bit better today.
--- NOTE | 2021-12-20 10:02 | NUR ---
PT SLEEPING ON STOMACH. CALL LIGHT WITHIN REACH NO FURTHER NEEDS AT THIS TIME. BETO HAY NOTIFIED OF LOW PULSE
--- NOTE | 2021-12-20 11:30 | NUR ---
Patient taking a nap, eyes closed, respirations even and non labored. Patient on vapotherm 30L/70%. No current needs. Personal supplies and call light within reach.
--- NOTE | 2021-12-20 12:16 | NUR ---
Patient awake eating lunch, a&x4. Patient denies shortness of breath at this time. SP02 96% on 30L/90% vapotherm. Patient reports her head pain is tolerable. No current needs. Personal supplies and call light within reach.
--- NOTE | 2021-12-20 17:40 | NUR ---
Admin tylenol 500mg and tessalon perles 100mg po for headache and cough.
--- NOTE | 2021-12-20 17:41 | NUR ---
PATIENT SITTING UP IN BED EATING DINNER. VITALS AND I&O'S CHARTED. CALL LIGHT IN REACH. NO FURTHER NEEDS AT THIS TIME.
--- NOTE | 2021-12-20 19:34 | NUR ---
RECEIVED REPORT FROM DAY SHIFT RN. PATIENT IS RESTING IN BED. PATIENT DENIES AWNY NEEDS. CALL LIGHT IN REACH.
--- NOTE | 2021-12-20 21:10 | NUR ---
PATIENT ASSESMENT COMPLETED. PATIENT MIK ANY PAIN OR SOB AT REST. VITALS TAKEN AND RECORDED. BSC EMPTIED. INTAKE AND OUTPUT RECORDED. SCHEDULE MEDICATIONS GIVEN PER ORDER. PATIENTS SCHEDULED MEDICATIONS GIVEN PER ORDER. PATIENTS IV INFUSING PER ORDER. PATIENT REMAINS ON 14L VIA NC. PATIENT DENIES ANY FURTHER NEEDS. CALL LIGHT IN REACH.
--- NOTE | 2021-12-20 22:15 | NUR ---
PATIENT IS SL NO PER ORDER. NO NEEDS NOTED. CALL LIGHT IN REACH.
--- NOTE | 2021-12-21 00:20 | NUR ---
PATIENT IS RESTING IN BED UP HIGH IN HER RIGHT SIDE. PATIENTS RR IS 19. PATIENT REMAINS ON 24 L VIA NC. CALL LIGHT IN REACH.
--- NOTE | 2021-12-21 01:47 | NUR ---
PATIENTS BSC COMMMODE EMPTIED. PATIENT TITRATED DOWN TO 12L VIA NC. PATIENT GIVEN PRN COUGH MEDICATION PER ORDER. PATIENT PROVIDED WITH FRESH ICE WATER. NO FURTHER NEEDS NOTED. CALL LIGHT IN REACH.
--- NOTE | 2021-12-21 04:35 | NUR ---
PATIENT IS RESTING IN BED ON HER LEFT SIDE. PATIENTS EYES ARE CLOSED, RR 18. CALL LIGHT IN REACH.
--- NOTE | 2021-12-21 04:44 | NUR ---
RT TITRATED PATIENT TO 9L VIA NC. PATIENT IS 95% ON 9L VIA NC.
--- NOTE | 2021-12-21 06:38 | NUR ---
PATIENT TITRATED TO 8L VIA NC. OXYGEN SATURATION 95%. MORNING VITALS TAKEN AND RECORDED. INTAKE AND OUTPUT RECORDED. PATIENT DENIES ANY NEEDS. CALL LIGHT IN REACH.
--- NOTE | 2021-12-21 07:38 | NUR ---
Patient resting in bed, eyes closed, respirations even and non labored. Patient has no distress. Personal supplies and call light within reach.
--- NOTE | 2021-12-21 09:00 | NUR ---
Patient requesting a small nap. Patient is on 8L oxygen per high flow nc, respirations even and non labored. Patient reports she is tired this morning. No sob and or chest pain.
--- NOTE | 2021-12-21 10:49 | NUR ---
Patient ambulated in room with this RN for two minutes on 8L oxygen per HF nc. Patient's oxygen ranging 93-100% with ambulation, once back in bed post walk pt's oxygen decreased to 88% for a few seconds then immeditately increased back up to 93%+. Patient reports she does not get anymore sob with ambulation.
--- NOTE | 2021-12-21 11:22 | NUR ---
Patient's oxygen decreased to 3L at this time. Patient resting in bed, respiraitons even and non labored. SP02 96% at this time.
--- NOTE | 2021-12-21 12:31 | NUR ---
Robitussin/codeine 5ml admin for cough.
--- NOTE | 2021-12-21 15:17 | NUR ---
Patient in shower at this time. Patient tolerating activity well.
--- NOTE | 2021-12-21 15:20 | NUR ---
PATIENT OUT OF SHOWER AND BACK TO BED, IND. PATIENT TOLERATED SHOWER WELL. AM CARE, SHAMPOO, SKIN CARE, LATOYA CARE DONE. LINENS CHANGED. NEW ATTENDS AND GOWN PROVIDED. CALL LIGHT IN REACH. NO FURTHER NEEDS AT THIS TIME.
--- NOTE | 2021-12-21 17:29 | NUR ---
Tessalon perles 100mg po and tylenol 500mg admin for headache and cough. Patient sitting up eating dinner, no distress. Patient remains on 3L nc, respirations non labored. Patient denies sob at this time. Vital signs stable, afebrile. Patient has no needs.
--- NOTE | 2021-12-21 17:50 | EKG ---
[facility] [address] [place] [address] Signed Sinus bradycardia Otherwise normal ECG When compared with ECG of 17-DEC-2021 13:47, Vent. rate has decreased BY 35 BPM Confirmed by YOHANA ZHU MD ([id number]) on 12/21/2021 5:50:26 PM Electronically Signed By: YOHANA ZHU MD 12/21/21 1750 PATIENT NAME: SAAD PORTILLO Electrocardiogram DATE OF : 70 PHYSICIAN: YOHANA ZHU MD REPORT #: [id number] REPORT IS CONFIDENTIAL AND NOT TO BE RELEASED WITHOUT AUTHORIZATION
--- NOTE | 2021-12-21 19:46 | NUR ---
RECEIVED REPORT FROM DAY SHIFT RN. PATIENT IS RESTING IN BED. WATCHING TV. NO NEEDS NOTED. CALL LIGHT IN REACH.
--- NOTE | 2021-12-21 22:20 | NUR ---
ASSESMENT COMPLETED. VITALS TAKEN AND RECORDED. PATIENT DENIES ANY PAIN OR SOB. PATIENT TITRATED TO 2L VIA NC. SCHEDULED MEDICATIONS GIVEN PER ORDER. PATIENT GIVEN PRN COUGH MEDICATION PER ORDER. PATIENTS IV INFUSING SCHEDULED MEDICATION PER ORDER. PATIENTS BSC EMPTIED. INTAKE AND OUTPUT RECORDED. PATIENTS ICE WATER REFILLED. NO FURTHER NEEDS NOTED. CALL LIGHT IN REACH.
--- NOTE | 2021-12-21 22:56 | NUR ---
PATIENTS IV SL PER ORDER. PATIENT GIVEN PRN TYLENOL FOR HEADACHE. PATIENT DENIES ANY FURTHER NEEDS. CALL LIGHT IN REACH.
--- NOTE | 2021-12-22 00:44 | NUR ---
PATIENT IS RESTING IN BED WITH EYES CLOSED, RR 17. CALL LIGHT IN REACH.
--- NOTE | 2021-12-22 02:01 | NUR ---
RT ATTEMPTED TO TITRATE PATIENT TO RA WHILE PT WAS ASLEEP. PATIENT IS NOW BACK ON 2L VIA NC. PATIENTS RR IS 17. CALL LIGHT IN REACH.
--- NOTE | 2021-12-22 04:12 | NUR ---
PATIENT REPOSITIONED IN BED. PATIENT DENIES ANY NEEDS. CALL LIGHT IN REACH. BED ALARM ON FOR SAFETY.
--- NOTE | 2021-12-22 04:14 | NUR ---
PATIENT IS RESTING IN BED WITH EYES CLOSED, RR 17. CALL LIGHT IN REACH. PATIENT REMAINS ON 2L VIA NC. CALL LIGHT IN REACH.
--- NOTE | 2021-12-22 05:39 | NUR ---
PATIENTS VITALS TAKEN AND RECORDED. BSC EMPTIED. PATIENTS INTAKE AND OUTPUT RECORDED. PATIENT DENIES ANY [AIN OR SOB. PATIENT REMAINS ON 2L VIA NC. PATIENT PROVIDED WITH PADS SHE STARTED HER MENSES. NO FURTHER NEEDS NOTED. CALL LIGHT IN REACH. ICE WATER PROVIDED.
--- NOTE | 2021-12-22 07:39 | NUR ---
Shift report received from BETO Perez, pt resting in bed w/ call light in reach and eyes closed, RR even and unlabored on 2L via NC, O2 sats 96% per CPOX Tele #4
--- NOTE | 2021-12-22 08:23 | NUR ---
PT UP IN ROOM WITHOUT OXGYEN ON, OXYGEN SATURATIONS DROPING TO 77%. THIS RN TO ROOM. NC PLACED BACK ON PT FACE. PT EDUCATION DONE REGARDING LEAVING OXGYEN IN PLACE. PT VERBALIZES UNDERSTANDING AND STATES SHE WILL LEAVE THE NC IN PLACE. STAND BY ASSIST BACK TO BED. OXGYEN SATURATIONS CLIMB TO 92%+. BLOOD SUGAR TAKEN. BREAKFAST DELIVERED. PT REQUESTS COUGH MEDICATION (SEE MAR FOR MEDICATION GIVEN). NO ADDITONAL REQUESTS OR COMPLAINTS. CALL LIGHT WITHIN REACH. BED RAILS UP. PTS PRIMARY RN UPDATED.
[2021-12-22] MEDS ORDERED: BENZONATATE100 MG PO (09:52)
[2021-12-22] MEDS ORDERED: PANTOPRAZOLE SO40 MG PO (09:53)
[2021-12-22] MEDS ORDERED: DEXAMETHASONE6 MG PO (09:53)
--- NOTE | 2021-12-22 10:02 | NUR ---
PT AWAKE IN BED WATCHING TV. CALL LIGHT IN REACH. NO FURTHER NEEDS AT THIS TIME
--- NOTE | 2021-12-22 10:15 | NUR ---
Spoke with Amy. Plans on dc to day. She will go home with her spouse. Pt awaiting qualifier. Pt cont. to want [facility] for her DME. She denies needs spouse will transport her. Discussed need to not dc until we have a delivery time for the and we can send her with a [facility] tank. Pt states understanding.
--- NOTE | 2021-12-22 10:35 | NUR ---
Pt sitting up in bed safely w/ call light in reach, O2 sats 95% on 2L via NC, per CPOX Tele #4. Morning assesment complete and scheduled meds given per provider order. Pt denies any SOB, pain, nausea, or needs at this time
--- NOTE | 2021-12-22 11:05 | NUR ---
Received 02 qualifier and faxed face sheet, RX, qualifier, H&P and DC summary to [facility]. Called and spoke with [place]. Pt has OHP and they will need to get an auth. She will call when they have a time for delivery. She states they can send a tank for pt to go home, informed we have 3 of their tanks and will send her home with one. Tanks last approx 3 hours. Discussed with dry charge process attendant not to send pt until we have a delivery time.
--- NOTE | 2021-12-22 12:00 | NUR ---
Pt sitting up on side of bed w/ call light in reach, eating lunch, insulin given per sliding scale. Pt denies any SOB, nausea, pain, or other needs at this time
--- NOTE | 2021-12-22 13:15 | NUR ---
PATIENT IN BED RESTING AT THIS TIME. VITALS AND I&O'S CHARTED. CALL LIGHT IN REACH. NO FURTHER NEEDS AT THIS TIME.
--- NOTE | 2021-12-22 15:00 | NUR ---
Pt given discharge instructions in both written and verbal form, all questions and concerns answered. IV removed, cath intact, no redness or swelling oberserved, gauze and coban applied, and pt educated on post IV site care. VSS on 2L via NC. Pt taken to back entrance where had car waiting to transport pt home
== END 2021-12-22 15:15 | disposition home or self-care (01) | DRG 177 ==
LOC: ED 13:06 → MS 17:16
PROVIDERS: ADMIT Internal Medicine; ATTEND Internal Medicine
PROC: 8E0ZXY6 Isolation (ICD-10-PCS; principal; 2021-12-17)
PROC: XW033E5 Introduction of Remdesivir Anti-infective into Peripheral Vein, Percutaneous Approach, New Technology Group 5 (ICD-10-PCS; 2021-12-17)
PROC: 3E0DX3Z Introduction of Anti-inflammatory into Mouth and Pharynx, External Approach (ICD-10-PCS; 2021-12-17)
PROC: XW0DXM6 Introduction of Baricitinib into Mouth and Pharynx, External Approach, New Technology Group 6 (ICD-10-PCS; 2021-12-18)
DX: U07.1 COVID-19 (principal); J12.82 Pneumonia due to coronavirus disease 2019; J96.01 Acute respiratory failure with hypoxia; Z68.41 Body mass index [BMI] 40.0-44.9, adult; E87.6 Hypokalemia; K75.2 Nonspecific reactive hepatitis; E66.9 Obesity, unspecified; E11.9 Type 2 diabetes mellitus without complications; Z79.899 Other long term (current) drug therapy; Z98.890 Other specified postprocedural states
CPT/HCPCS: 36415; 71045; 80053; 82803; 83036; 83735; 84484; 84703; 85025; 85379; 86140; 93005; 93010; 94640; 94664; 94760; 94761; 94762; 94799; A9270; J0248; J1100; J1650; J1815; J1885; J2405; J7040; J7050; J7121; J8540

== ENCOUNTER → 2022-07-31 | Emergency (ER) | payer OTHER ==
[~2022-07-31] VITALS: Ht 160 cm; Wt 98.0 kg
[~2022-07-31] MED LIST changes: +BENZONATATE100 MG PO; +DEXAMETHASONE6 MG PO; +DICLOFENAC POTA50 MG PO; +PANTOPRAZOLE SO40 MG PO; +PERMETHRIN60 GM TOP
== END ==
LOC: ED 19:03
DX: B86 Scabies (principal); E11.9 Type 2 diabetes mellitus without complications; E66.9 Obesity, unspecified; Z79.84 Long term (current) use of oral hypoglycemic drugs
CPT/HCPCS: 99282

== ENCOUNTER 2024-11-11 09:17 | Emergency (ER) | payer OTHER ==
[~2024-11-11] VITALS: Ht 160 cm; Wt 72.6 kg
[2024-11-11] MEDS ORDERED: ondansetron HCL 4 MG/2 ML VIAL IV PRN (12:00)
[2024-11-11] MEDS ORDERED: SODIUM CHLORIDE 0.9% 1,000 ML IV ONE (12:00)
[2024-11-11 12:13] LABS: BASOPHILS 0.5 % (0-2); EOSINOPHILS 1.4 % (0-6); HEMATOCRIT 50.3 % (35.0-50.0); HEMOGLOBIN 17.1 g/dL (12.0-18.0); LYMPHOCYTES 16.2 % (24-44); MCH 30.8 (27-36); MCHC 33.9 g/dl (30-36); MCV 90.8 fl (81-99); MONOCYTES 10.2 % (0-12); NEUTROPHILS 71.7 % (39-80); PLATELET COUNT 256 K/uL (140-440); RBC 5.54 M/ul (4.3-5.7); RDW 13.9 (10.5-15.0)
[2024-11-11 12:34] LABS: ALBUMIN/GLOBULIN RATIO 0.91 (1.1-2.4); ANION GAP 16.6 (7-21); BILIRUBIN, TOTAL 0.7 ng/dL (0.2-1.0); BUN/CREATININE RATIO 26.66 (6.0-28.6); CALCIUM 9.3 mg/dL (8.5-10.1); CREATININE, SERUM 0.75 mg/dL (0.55-1.02); POTASSIUM 3.6 mmol/L (3.5-5.1); PROTEIN, TOTAL 8.4 g/dL (6.4-8.2)
[2024-11-11] MEDS ORDERED: ONDANSETRON ODT8 MG PO (13:26)
[2024-11-11 13:39] VITALS: BP 160/97
--- NOTE | 2024-11-15 20:23 | EKG ---
[facility] [address] [place] [address] Signed Normal sinus rhythm Left anterior fascicular block Cannot rule out Inferior infarct (masked by fascicular block?) , age undetermined Abnormal ECG When compared with ECG of 19-DEC-2021 10:30, Vent. rate has increased BY 27 BPM QRS axis shifted left Confirmed by Izzy Soliz DO ([id number]) on 11/15/2024 8:23:19 PM Electronically Signed By: IZZY SOLIZ DO 11/15/242022 PATIENT NAME: SAAD PORTILLO Electrocardiogram DATE OF : 70 PHYSICIAN: IZZY SOLIZ DO REPORT #: [id number] REPORT IS CONFIDENTIAL AND NOT TO BE RELEASED WITHOUT AUTHORIZATION
== END 2024-11-11 13:39 | disposition home or self-care (01) ==
LOC: ED 09:17
PROVIDERS: Emergency Medicine
DX: R11.2 Nausea with vomiting, unspecified (principal); R19.7 Diarrhea, unspecified; E86.0 Dehydration; E11.9 Type 2 diabetes mellitus without complications; Z79.84 Long term (current) use of oral hypoglycemic drugs; Z90.5 Acquired absence of kidney
CPT/HCPCS: 36415; 80053; 85025; 93005; 93010; 96374; 99284-25; J2405; J7030